=== PATIENT | female | born 1940 | race Caucasian/White ===

== ENCOUNTER 2022-12-09 09:35 | Inpatient (IN) | payer MEDICARE ==
[~2022-12-09] VITALS: Ht 170.2 cm; Wt 78.0 kg
[2022-12-09] VITALS (8 sets, daily range): BP systolic 126–155; BP diastolic 57–79
[~2022-12-09 09:35] MED LIST: ASPIRIN 81 LOW81 MG PO; ENALAPRIL20 MG PO; FAMOTIDINE20 M3 PO; HYDROCHLOROT25 MG PO; LIPITOR20 M1 PO; LORTAB 1010 MG PO; NITROGLYCERIN0.4 MG; POTASSIUM CHLO10 MEQ PO; VIT C/ACEROL500 M1 PO; VITAMIN D32000 UNI2
[2022-12-09 10:24] LABS: BASO% 0.2 % (0-3); EOS% 1.3 % (0-8); HEMATOCRIT 42.1 % (37.0-47.0); HEMOGLOBIN 14.2 g/dl (12.0-16.0); MEAN CELL VOLUME 97.5 fL CALC (80.0-100.0); MEAN CORPUSCULAR HGB 32.9 pG CALC (26.0-32.0); MEAN CORPUSCULAR HGB CONC 33.7 g/dL CAL (32.0-36.0); MONO% 8.2 % (2-13); NEUT# 5.74 thou/uL (2.00-7.15); NEUT% 68.9 % (42-76); RED BLOOD COUNT 4.32 mill/uL (4.20-5.60); RED CELL DISTRI WIDTH 12.9 % (11.5-15.5)
[2022-12-09] MEDS ORDERED: AMLODIPINE BESY10 MG PO (10:29)
[2022-12-09 10:39] LABS: ALKALINE PHOSPHATASE 66 u/l (38-126); ANION GAP 9 (6-22 (CALC)); BILIRUBIN, TOTAL 0.7 mg/dL (0.02-1.3); BUN 12 mg/dL (8-23); BUN/CREATININE RATIO 22 (12-20 (CALC)); CARBON DIOXIDE 33 mmol/l (22-30); CHLORIDE 100 mmol/l (95-108); CREATININE 0.5 mg/dL (0.5-1.0); GFR FOR AFR.AMER. > 60 ML/MIN (>=60 (CALC)); GFR OTHER RACES > 60 ML/MIN (>=60 (CALC)); POTASSIUM 3.2 mmol/l (3.5-5.1); SGOT/AST 31 u/l (9-36); SODIUM 138 mmol/l (137-146); TOTAL PROTEIN 6.8 g/dL (6.3-8.2)
[2022-12-09 10:45] LABS: IMMATURE GRANULOCYTES 1.3 % (0.0-5.0); LYMPH% 20.1 % (15-41)
[2022-12-09 10:52] LABS: ALBUMIN 3.6 g/dL (3.2-5.0)
[2022-12-09] MEDS ORDERED: PEPCID20 MG PO (16:58)
[2022-12-10 00:12] VITALS: BP 123/50
[2022-12-10 04:41] VITALS: BP 126/52
[2022-12-10 06:39] LABS: HEMATOCRIT 38.7 % (37.0-47.0); HEMOGLOBIN 12.9 g/dl (12.0-16.0); MEAN CELL VOLUME 97.7 fL CALC (80.0-100.0); MEAN CORPUSCULAR HGB 32.6 pG CALC (26.0-32.0); MEAN CORPUSCULAR HGB CONC 33.3 g/dL CAL (32.0-36.0); RED BLOOD COUNT 3.96 mill/uL (4.20-5.60); RED CELL DISTRI WIDTH 12.8 % (11.5-15.5)
[2022-12-10 06:51] LABS: ANION GAP 10 (6-22 (CALC)); BUN 11 mg/dL (8-23); BUN/CREATININE RATIO 20 (12-20 (CALC)); CALCULATED LDLCHOLESTEROL 89 mg/dL (62-129 (CALC)); CARBON DIOXIDE 28 mmol/l (22-30); CHLORIDE 106 mmol/l (95-108); CHOLESTEROL HDL RATIO 4.1 (<4.4 (CALC)); CREATININE 0.5 mg/dL (0.5-1.0); GFR FOR AFR.AMER. > 60 ML/MIN (>=60 (CALC)); GFR OTHER RACES > 60 ML/MIN (>=60 (CALC)); HDL CHOLESTEROL 39 mg/dL (39.0-59.0); MAGNESIUM 1.9 mg/dL (1.6-2.3); POTASSIUM 3.5 mmol/l (3.5-5.1); SODIUM 139 mmol/l (137-146); TOTAL CHOLESTEROL 160 mg/dl (0-199); TOTAL TRIGLYCERIDES 160 mg/dl (0-149); VLDL CHOLESTROL 32 mg/dl (0-48 (CALC))
[2022-12-10 07:41] VITALS: BP 139/70
[2022-12-10 11:15] LABS: URINE BILIRUBIN - DIPSTICK Negative (NEGATIVE); URINE BLOOD DIPSTICK Negative (NEGATIVE); URINE GLUCOSE - DIPSTICK Negative (NEGATIVE); URINE KETONE Trace mg/dL (NEGATIVE); URINE LEUK ESTERASE Negative (NEGATIVE); URINE NITRITE - DIPSTICK Negative (Negative); URINE PROTEIN - DIPSTICK Trace mg/dL (NEG-TRACE)
[2022-12-10 11:18] LABS: URINE COLOR Yellow
[2022-12-10 12:00] VITALS: BP 125/61
[2022-12-10 15:55] VITALS: BP 125/54
[2022-12-10 19:15] VITALS: BP 134/61
[2022-12-11] VITALS (7 sets, daily range): BP systolic 103–141; BP diastolic 52–66
[2022-12-11 09:24] LABS: ALBUMIN 3.4 g/dL (3.2-5.0); ALKALINE PHOSPHATASE 61 u/l (38-126); ANION GAP 12 (6-22 (CALC)); BILIRUBIN, TOTAL 0.5 mg/dL (0.02-1.3); BUN 15 mg/dL (8-23); BUN/CREATININE RATIO 31 (12-20 (CALC)); CHLORIDE 112 mmol/l (95-108); CREATININE 0.5 mg/dL (0.5-1.0); GFR FOR AFR.AMER. > 60 ML/MIN (>=60 (CALC)); GFR OTHER RACES > 60 ML/MIN (>=60 (CALC)); POTASSIUM 3.7 mmol/l (3.5-5.1); SGOT/AST 37 u/l (9-36); SODIUM 142 mmol/l (137-146); TOTAL PROTEIN 6.5 g/dL (6.3-8.2)
[2022-12-11 09:35] LABS: HEMATOCRIT 37.1 % (37.0-47.0); HEMOGLOBIN 12.3 g/dl (12.0-16.0); IMMATURE GRANULOCYTES 1.3 % (0.0-5.0); LYMPH% 6.9 % (15-41); MEAN CELL VOLUME 99.5 fL CALC (80.0-100.0); MEAN CORPUSCULAR HGB CONC 33.2 g/dL CAL (32.0-36.0); MONO% 2.1 % (2-13); NEUT# 18.76 thou/uL (2.00-7.15); NEUT% 89.7 % (42-76); RED BLOOD COUNT 3.73 mill/uL (4.20-5.60); RED CELL DISTRI WIDTH 13.3 % (11.5-15.5)
[2022-12-11 10:24] LABS: CARBON DIOXIDE 22 mmol/l (22-30)
[2022-12-12 04:51] LABS: BASO% 0.1 % (0-3); HEMATOCRIT 33.7 % (37.0-47.0); HEMOGLOBIN 11.1 g/dl (12.0-16.0); IMMATURE GRANULOCYTES 1.7 % (0.0-5.0); LYMPH% 6.1 % (15-41); MEAN CELL VOLUME 101.2 fL CALC (80.0-100.0); MEAN CORPUSCULAR HGB 33.3 pG CALC (26.0-32.0); MEAN CORPUSCULAR HGB CONC 32.9 g/dL CAL (32.0-36.0); MONO% 3.4 % (2-13); NEUT# 14.81 thou/uL (2.00-7.15); NEUT% 88.7 % (42-76); RED BLOOD COUNT 3.33 mill/uL (4.20-5.60)
[2022-12-12 05:05] LABS: ALBUMIN 2.9 g/dL (3.2-5.0); ALKALINE PHOSPHATASE 57 u/l (38-126); ANION GAP 7 (6-22 (CALC)); BILIRUBIN, TOTAL 0.4 mg/dL (0.02-1.3); BUN 15 mg/dL (8-23); BUN/CREATININE RATIO 34 (12-20 (CALC)); CARBON DIOXIDE 26 mmol/l (22-30); CHLORIDE 111 mmol/l (95-108); CREATININE 0.5 mg/dL (0.5-1.0); GFR FOR AFR.AMER. > 60 ML/MIN (>=60 (CALC)); GFR OTHER RACES > 60 ML/MIN (>=60 (CALC)); POTASSIUM 3.9 mmol/l (3.5-5.1); SGOT/AST 32 u/l (9-36); SODIUM 140 mmol/l (137-146); TOTAL PROTEIN 5.6 g/dL (6.3-8.2)
[2022-12-12 06:37] VITALS: BP 128/69
[2022-12-12 08:28] VITALS: BP 128/69
[2022-12-12] MEDS ORDERED: LEVAQUIN750 M1 PO (11:48)
[2022-12-12] MEDS ORDERED: PREDNISONE20 MG PO (11:48)
== END 2022-12-12 14:16 | disposition home health service (06) | DRG 193 ==
LOC: ED 09:35 → ED-I 11:03 → ED 12:08 → ED-I 12:09 → MS2 17:10
PROVIDERS: Family Medicine; ADMIT Student in an Organized Health Care Education/Training Program; ATTEND Student in an Organized Health Care Education/Training Program
DX: J11.00 Influenza due to unidentified influenza virus with unspecified type of pneumonia (principal); J96.01 Acute respiratory failure with hypoxia; J44.0 Chronic obstructive pulmonary disease with (acute) lower respiratory infection; J15.9 Unspecified bacterial pneumonia; M45.9 Ankylosing spondylitis of unspecified sites in spine; J84.178 Other interstitial pulmonary diseases with fibrosis in diseases classified elsewhere; I10 Essential (primary) hypertension; E87.6 Hypokalemia; Z86.79 Personal history of other diseases of the circulatory system; Z87.891 Personal history of nicotine dependence; Z87.19 Personal history of other diseases of the digestive system; Z88.0 Allergy status to penicillin; Z20.822 Contact with and (suspected) exposure to COVID-19
CPT/HCPCS: J1650; Q9967